=== PATIENT | female | born 1990 | race Two or more races ===

== ENCOUNTER 2023-06-24 08:19 | Emergency (ER) | payer MEDICAID ==
[~2023-06-24] VITALS: Ht 172.7 cm; Wt 102.2 kg
[2023-06-24 09:03] VITALS: BP 98/71; PULSE 88; RESP 20; TEMP 97.1; O2SAT 96
[2023-06-24] MEDS ORDERED: DexAMETHasone SOD PHOS 10MG/1ML VIAL INJ IM ONE (09:30)
[2023-06-24] MEDS ORDERED: ACETAMINOPHEN 500 MG TAB PO ONE (09:30)
[2023-06-24] MEDS ORDERED: FLUT100I IN (11:39)
[2023-06-24 12:05] LABS: COVID19 ANTIGEN SOFIA FIA POSITIVE (NEGATIVE)
== END 2023-06-24 12:11 | disposition home or self-care (01) ==
LOC: ER 08:19
DX: U07.1 COVID-19 (principal); J06.9 Acute upper respiratory infection, unspecified
CPT/HCPCS: 36415; 87426; 96372; 99283; J1100